=== PATIENT | male | born 1945 | race Caucasian/White ===

== ENCOUNTER 2016-10-04 09:12 | Emergency (ER) | payer OTHER ==
[2016-10-04 09:40] VITALS: RESP 16; TEMP 98.2
[2016-10-04 09:40] LABS: COLOR YELLOW; LEUKOCYTE ESTERASE,URINE NEGATIVE (NEGATIVE); NITRITE,URINE NEGATIVE (NEGATIVE)
[2016-10-04 09:58] LABS: % IMMATURE GRANULYOCYTES 0.4 % (0.0-1.1); ABSOLUTE IMMATURE GRANULOCYTES 0.03 10^3/uL (0.00-0.10); ADD DIFF? NO; ADD MORPH? NO; ADD SCAN? NO; ATYPICAL LYMPHOCYTE FLAG 0 (0-99); FRAGMENT RBC FLAG 0 (0-99); HEMATOCRIT 37.7 % (40.0-51.0); HEMOGLOBIN 13.3 g/dL (13.7-17.5); LEFT SHIFT FLG 0 (0-99); LIPEMIA HEMOLYSIS FLAG 90 (0-99); MEAN CELL HEMOGLOBIN 33.3 pg (27.9-34.1); MEAN CELL HEMOGLOBIN CONCENTR. 35.3 g/dL (32.4-36.7); MEAN CELL VOLUME 94.3 fL (81.5-99.8); MEAN PLATELET VOLUME 10.8 fL (8.7-11.7); PLATELET CLUMPS FLAG 0 (0-99); PLATELET COUNT 205 10^3/uL (150-400); RED CELL DISTRIBUTION WIDTH 12.3 % (11.5-15.2)
[2016-10-04 10:01] LABS: INR 1.58 (0.83-1.16); PROTIME(PATIENT) 18.9 SEC (12.0-15.0)
[2016-10-04 10:03] LABS: APTT 51.8 SEC (23.0-38.0)
[2016-10-04 10:09] LABS: BACTERIA TRACE /hpf (NONE SEEN); MUCUS 1+ /lpf (NONE-1+); RBC,URINE 50-182 /hpf (0-3)
[2016-10-04 10:14] LABS: ANION GAP 12 mEq/L (8-16); CALCIUM 9.1 mg/dL (8.5-10.4); CARBON DIOXIDE 21 mEq/l (22-31); CHLORIDE 103 mEq/L (97-110); CREATININE 1.5 mg/dL (0.7-1.3); GLOMERULAR FILTRATION RATE 46; GLUCOSE 120 mg/dL (70-100); SODIUM 136 mEq/L (134-144)
[2016-10-04] MEDS ORDERED: NS 1,000 ML IV ONE (10:42)
[2016-10-04] MEDS ORDERED: ONDANSETRON 4 MG/2 ML VIAL IVP ONE (10:53)
--- NOTE | 2016-10-04 12:10 | EDPHY ---
H & P Stated Complaint: Possible kidney stone Time Seen by Provider: 10/04/16 09:26 HPI/ROS: Chief complaint: Left flank pain, possible kidney stone History of present illness: This is a 71-year-old male with a history of kidney stones who presents to the emergency department with left flank pain. He reports the onset of symptoms over the last few days. He has had associated hematuria although this started before the pain. He denies precipitating factors. He denies alleviating factors. He did contact his urologist office who recommended he come to the emergency room for evaluation. Patient denies other associated signs or symptoms including no fevers, no dysuria, no frequency or hesitancy. Review of systems: A 10 point review of systems was obtained and other than described above was negative Source: Patient, snf records - Personal History Current Tetanus Diphtheria and Acellular Pertussis (TDAP): Yes - Medical/Surgical History Other PMH: kidney stones - Social History Smoking Status: Former smoker - Physical Exam Exam: General Appearance: Alert, nontoxic. Eyes: Pupils equal and round no pallor or injection. ENT, Mouth: Mucous membranes moist. Respiratory: There are no retractions, lungs are clear to auscultation. Cardiovascular: Regular rate and rhythm. Gastrointestinal: Abdomen is soft and nontender, no masses, bowel sounds normal. Genitourinary: No CVA tenderness. Neurological: Alert and oriented x4. Strength and sensation intact and symmetrical. Skin: Warm and dry, no rashes. Musculoskeletal: Neck is supple nontender. Extremities are symmetrical, full range of motion. Psychiatric: Patient is oriented X 3, there is no agitation. Constitutional: Initial Vital Signs Temperature (C) 36.8 C 10/04/16 09:20 Heart Rate 69 10/04/16 09:20 Respiratory Rate 16 10/04/16 09:20 Blood Pressure 117/68 10/04/16 09:20 O2 Sat (%) 98 10/04/16 09:20 O2 Delivery Mode Room Air Allergies/Adverse Reactions: No Known Allergies Allergy (Verified 10/04/16 09:24) Home Medications: Medication Instructions Recorded Atorvastatin Calcium [Lipitor 40 40 mg PO 10/04/16 mg (*)] Dabigatran Etexilate Mesyl 150 mg PO BID 10/04/16 [Pradaxa 150 MG (*)] Hydrocodone/APAP 5/325 [[place] 1 tab PO Q6H #10 tab 10/04/16 5/325 (*)] [place]-3 Fatty Acids [Fish Oil] 300 mg PO 10/04/16 Ondansetron Odt [Zofran Odt 4 mg 4 mg PO Q6 #6 tab 10/04/16 (*)] Ubidecarenone [Coq-10] 30 mg PO 10/04/16 Medical Decision Making - Diagnostics Imaging: CT scan of the abdomen pelvis shows a left-sided distal 4 mm ureteral stone with mild hydro. Also a benign pulmonary nodule. ED Course/Re-evaluation: Patient seen under the supervision of my secondary supervising physician Dr. Jim Iqbal. Patient presents to the emergency department for left flank pain. It does appear that he has a kidney stone. There is mild elevation of creatinine. He has been IV hydrated. His pain has been controlled. I have consulted with his urologist, Dr. Nhan Harris. He is comfortable with patient being discharged home and following up in clinic. He does not recommend antibiotics for urinalysis findings. Home care is discussed with the patient. Return precautions are given. Patient voiced understanding and agreement with plan. Differential Diagnosis: Included but not limited to kidney stone, urinary tract infection, obstructive uropathy - Data Points Laboratory Results: Laboratory Results 10/04/16 09:45 10/04/16 09:45 10/04/16 10/04/16 10/04/16 09:45 09:45 09:45 WBC 8.55 10^3/uL 10^3/uL (3.80-9.50) RBC 4.00 10^6/uL L 10^6/uL (4.40-6.38) Hgb 13.3 g/dL L g/dL (13.7-17.5) Hct 37.7 % L % (40.0-51.0) MCV 94.3 fL fL (81.5-99.8) MCH 33.3 pg pg (27.9-34.1) MCHC 35.3 g/dL g/dL (32.4-36.7) RDW 12.3 % % (11.5-15.2) Plt Count 205 10^3/uL 10^3/uL (150-400) MPV 10.8 fL fL (8.7-11.7) Neut % (Auto) 78.1 % H % (39.3-74.2) Lymph % (Auto) 12.3 % L % (15.0-45.0) [place] % (Auto) 8.7 % % (4.5-13.0) Eos % (Auto) 0.1 % L % (0.6-7.6) Baso % (Auto) 0.4 % % (0.3-1.7) Nucleat RBC Rel Count 0.0 % % (0.0-0.2) Absolute Neuts (auto) 6.69 10^3/uL H 10^3/uL (1.70-6.50) Absolute Lymphs (auto) 1.05 10^3/uL 10^3/uL (1.00-3.00) Absolute Monos (auto) 0.74 10^3/uL 10^3/uL (0.30-0.80) Absolute Eos (auto) 0.01 10^3/uL L 10^3/uL (0.03-0.40) Absolute Basos (auto) 0.03 10^3/uL 10^3/uL (0.02-0.10) Absolute Nucleated RBC 0.00 10^3/uL 10^3/uL (0-0.01) Immature Gran % 0.4 % % (0.0-1.1) Immature Gran # 0.03 10^3/uL 10^3/uL (0.00-0.10) PT 18.9 SEC H SEC (12.0-15.0) INR 1.58 H (0.83-1.16) APTT 51.8 SEC H SEC (23.0-38.0) Sodium 136 mEq/L mEq/L (134-144) Potassium 4.0 mEq/L mEq/L (3.5-5.2) Chloride 103 mEq/L mEq/L (97-110) Carbon Dioxide 21 mEq/l L mEq/l (22-31) Anion Gap 12 mEq/L mEq/L (8-16) BUN 23 mg/dL mg/dL (7-23) Creatinine 1.5 mg/dL H mg/dL (0.7-1.3) Estimated GFR 46 Glucose 120 mg/dL H mg/dL (70-100) Calcium 9.1 mg/dL mg/dL (8.5-10.4) Urine Color Urine Appearance Urine pH Ur Specific [place] Urine Protein Urine Ketones Urine Blood Urine Nitrate Urine Bilirubin Urine Urobilinogen Ur Leukocyte Esterase Urine RBC Urine WBC Ur Epithelial Cells Urine Bacteria Hyaline Casts Urine Mucus Ur Culture Indicated? Urine Glucose 10/04/16 09:25 WBC RBC Hgb Hct MCV MCH MCHC RDW Plt Count MPV Neut % (Auto) Lymph % (Auto) [place] % (Auto) Eos % (Auto) Baso % (Auto) Nucleat RBC Rel Count Absolute Neuts (auto) Absolute Lymphs (auto) Absolute Monos (auto) Absolute Eos (auto) Absolute Basos (auto) Absolute Nucleated RBC Immature Gran % Immature Gran # PT INR APTT Sodium Potassium Chloride Carbon Dioxide Anion Gap BUN Creatinine Estimated GFR Glucose Calcium Urine Color YELLOW Urine Appearance MODERATELY TURBID Urine pH 5.0 (5.0-7.5) Ur Specific [place] 1.028 (1.002-1.030) Urine Protein 2+ H (NEGATIVE) Urine Ketones TRACE H (NEGATIVE) Urine Blood 3+ H (NEGATIVE) Urine Nitrate NEGATIVE (NEGATIVE) Urine Bilirubin NEGATIVE (NEGATIVE) Urine Urobilinogen NEGATIVE EU EU (0.2-1.0) Ur Leukocyte Esterase NEGATIVE (NEGATIVE) Urine RBC 50-182 /hpf H /hpf (0-3) Urine WBC 10-15 /hpf H /hpf (0-3) Ur Epithelial Cells NONE SEEN /lpf /lpf (NONE-1+) Urine Bacteria TRACE /hpf H /hpf (NONE SEEN) Hyaline Casts 1-5 /lpf /lpf (0-1) Urine Mucus 1+ /lpf /lpf (NONE-1+) Ur Culture Indicated? INDICATED H (NI) Urine Glucose NEGATIVE (NEGATIVE) Medications Given: Discontinued Medications Sodium Chloride (Ns) 1,000 mls @ 0 mls/hr IV ONCE ONE PRN Reason: Wide Open Stop: 10/04/16 10:43 Last Admin: 10/04/16 10:10 Dose: 1,000 mls Morphine Sulfate (Morphine) 2 mg IVP EDNOW ONE Stop: 10/04/16 10:53 Last Admin: 10/04/16 10:55 Dose: 2 mg Ondansetron HCl (Zofran) 4 mg IVP EDNOW ONE Stop: 10/04/16 10:54 Last Admin: 10/04/16 10:55 Dose: 4 mg Departure - Departure Disposition: Home, Routine, Self-Care Clinical Impression: Kidney stone Condition: Good Instructions: Kidney Stones (ED) Additional Instructions: Follow-up with your urologist this week for recheck Please have your urologist or primary care doctor recheck your creatinine as it was elevated at 1.5 today If symptoms worsen or new symptoms develop return to the emergency department for recheck Referrals: David Cordoba MD [Primary Care Provider] - As per Instructions Nhan Harris MD [Medical Doctor] - As per Instructions Prescriptions: Hydrocodone/APAP 5/325 [[place] 5/325 (*)] 1 tab PO Q6H #10 tab Ondansetron Odt [Zofran Odt 4 mg (*)] 4 mg PO Q6 #6 tab
[2016-10-04 12:44] VITALS: BP 132/63; PULSE 65; O2SAT 96
== END 2016-10-04 12:44 | disposition home or self-care (01) ==
DX: N20.0 Calculus of kidney (principal); Z87.891 Personal history of nicotine dependence
CPT/HCPCS: 74176; 96361; 96374; 96375; 99285; J2405

== ENCOUNTER 2016-10-08 06:34 | Day surgery (SDC) | payer OTHER ==
[2016-10-08] MEDS ORDERED: ONDANSETRON 4 MG/2 ML VIAL IVP ONE (07:08)
--- NOTE | 2016-10-08 07:12 | EDPHY ---
H & P Time Seen by Provider: 10/08/16 06:58 HPI/ROS: CHIEF COMPLAINT: Left flank pain HISTORY OF PRESENT ILLNESS: 71-year-old male with a history of kidney stones presents left flank pain. On 10/04/2016, he was diagnosed with a left ureteral calculus, 4 x 3 mm, associated with moderate left hydronephrosis. He was discharged home on hydrocodone. Since then the pain has remained moderate to severe and this associated with generalized abdominal cramping. He saw Dr. Nair in the office 2 days ago and the plan was to observe for now, consider operative removal of the ureteral calculus if symptoms persist. No associated fever, dysuria or vomiting. REVIEW OF SYSTEMS: Constitutional: No fever, no chills Eyes: No visual changes ENT: No sore throat Respiratory: No cough, no shortness of breath Cardiac: No chest pain Gastrointestinal: No nausea, no vomiting Genitourinary: No hematuria, no dysuria Musculoskeletal: No leg pain or swelling Skin: No rash Neurological: No headache, no numbness, no weakness Psychiatric: No depression Past Medical/Surgical History: Kidney stones Social History: Smoking Status: Former smoker Physical Exam: General Appearance: Alert, pleasant, does not appear in pain Eyes: Pupils equal and round, no conjunctival pallor or injection ENT, Mouth: Mucous membranes moist Neck: Normal inspection Respiratory: Lungs are clear to auscultation Cardiovascular: Regular rate and rhythm Gastrointestinal: Abdomen is soft, left lower quadrant tenderness Back: No CVA tenderness Neurological: A&O, nonfocal, normal gait Skin: Warm and dry, no rash Extremities: Nontender, no pedal edema Psychiatric: Mood and affect normal Constitutional: Initial Vital Signs Temperature (C) 36.8 C 10/08/16 06:39 Heart Rate 66 10/08/16 06:39 Respiratory Rate 16 10/08/16 06:39 Blood Pressure 120/53 L 10/08/16 06:39 O2 Sat (%) 92 10/08/16 06:39 O2 Delivery Mode Room Air Allergies/Adverse Reactions: No Known Allergies Allergy (Verified 10/08/16 06:44) Home Medications: Medication Instructions Recorded Atorvastatin Calcium [Lipitor 40 40 mg PO HS 10/04/16 mg (*)] Dabigatran Etexilate Mesyl 150 mg PO BID 10/04/16 [Pradaxa 150 MG (*)] Docusate Sodium [Colace 100 MG (*)] 100 mg PO DAILY 10/08/16 Herbals/Supplements -Info Only 1 ea PO DAILY 10/08/16 Hydrocodone/APAP 5/325 [[place] 1 tab PO Q4-6PRN PRN 10/08/16 5/325 (*)] [place]-3 Fatty Acids [Fish Oil 1000 1,000 mg PO BID 10/08/16 mg (*)] Ondansetron Odt [Zofran Odt 4 mg 4 mg PO Q8H PRN 10/08/16 (*)] Propafenone HCl [Rythmol 150mg (*)] 150 mg PO TID 10/08/16 Terazosin HCl [Hytrin 2 MG (*)] 2 mg PO HS 10/08/16 celeCOXIB [Celebrex (*)] 200 mg PO BID PRN 10/08/16 Medical Decision Making ED Course/Re-evaluation: This patient presents with persistent severe left flank pain related to renal colic and a known ureteral calculus. IV normal saline 1 L, morphine and Zofran I IV given with pain relief. Consulted Dr. Harris, who will admit the patient. Differential Diagnosis: Differential diagnosis includes though it is not limited to appendicitis, cholecystitis, diverticulitis, pyelonephritis, bowel perforation, small bowel obstruction. - Data Points Laboratory Results: Laboratory Results 10/08/16 06:55 10/08/16 06:55 Medications Given: Discontinued Medications Sodium Chloride (Ns) 1,000 mls @ 0 mls/hr IV ONCE ONE PRN Reason: Wide Open Stop: 10/08/16 07:51 Last Admin: 10/08/16 07:50 Dose: 1,000 mls Morphine Sulfate (Morphine) 6 mg IVP Q1H PRN PRN Reason: Pain, Severe Unable to Take PO Stop: 10/08/16 09:09 Last Admin: 10/08/16 09:37 Dose: 4 mg Ondansetron HCl (Zofran) 4 mg IVP EDNOW ONE Stop: 10/08/16 07:09 Last Admin: 10/08/16 11:09 Dose: Not Given Departure - Departure Disposition: To OP Cath/Surgery Clinical Impression: Left ureteral calculus Condition: Good
[2016-10-08 07:15] LABS: % IMMATURE GRANULYOCYTES 0.3 % (0.0-1.1); ABSOLUTE IMMATURE GRANULOCYTES 0.02 10^3/uL (0.00-0.10); ADD DIFF? NO; ADD MORPH? NO; ADD SCAN? NO; ATYPICAL LYMPHOCYTE FLAG 10 (0-99); FRAGMENT RBC FLAG 0 (0-99); HEMATOCRIT 33.1 % (40.0-51.0); HEMOGLOBIN 11.5 g/dL (13.7-17.5); LEFT SHIFT FLG 0 (0-99); LIPEMIA HEMOLYSIS FLAG 90 (0-99); MEAN CELL HEMOGLOBIN 32.6 pg (27.9-34.1); MEAN CELL HEMOGLOBIN CONCENTR. 34.7 g/dL (32.4-36.7); MEAN CELL VOLUME 93.8 fL (81.5-99.8); MEAN PLATELET VOLUME 10.5 fL (8.7-11.7); PLATELET CLUMPS FLAG 0 (0-99); PLATELET COUNT 182 10^3/uL (150-400); RED BLOOD CELL COUNT 3.53 10^6/uL (4.40-6.38); RED CELL DISTRIBUTION WIDTH 12.5 % (11.5-15.2)
[2016-10-08 07:22] LABS: ANION GAP 8 mEq/L (8-16); CALCIUM 8.6 mg/dL (8.5-10.4); CARBON DIOXIDE 24 mEq/l (22-31); CHLORIDE 102 mEq/L (97-110); CREATININE 1.7 mg/dL (0.7-1.3); GLOMERULAR FILTRATION RATE 40; GLUCOSE 105 mg/dL (70-100); POTASSIUM 4.4 mEq/L (3.5-5.2); SODIUM 134 mEq/L (134-144)
[2016-10-08] MEDS ORDERED: NS 1,000 ML IV ONE (07:50)
[2016-10-08] MEDS ORDERED: ONDANSETRON 4 MG/2 ML VIAL IVP PRN (09:30)
[2016-10-08] MEDS ORDERED: HYDROmorphONE/DILAUDID 6 MG/30 ML PCA IV PRN (09:30)
[2016-10-08] MEDS ORDERED: D5W 1/2 NS 1,000 ML IV SCH (09:45)
[2016-10-08 10:26] LABS: COLOR PALE YELLOW; LEUKOCYTE ESTERASE,URINE NEGATIVE (NEGATIVE); NITRITE,URINE NEGATIVE (NEGATIVE)
[2016-10-08] MEDS ORDERED: IOPAMIDOL (ISOVUE-300) 200 ML BTL IV ONE (10:41)
[2016-10-08 10:42] VITALS: BP 109/59; PULSE 64; RESP 14; O2SAT 94
[2016-10-08 11:37] VITALS: TEMP 98.4
[2016-10-08] MEDS ORDERED: fentaNYL 100 MCG/2 ML INJ ONE (12:42)
[2016-10-08] MEDS ORDERED: PROPOFOL 200 MG/20 ML VIAL ONE ×2 (12:42)
[2016-10-08] MEDS ORDERED: ceFAZolin 2 GM/DEXTROSE 100 ML IV ONE (13:00)
[2016-10-08] MEDS ORDERED: LIDOCAINE 2% 5 ML SDV ONE (13:03)
[2016-10-08] MEDS ORDERED: epHEDrine SULFATE 10 MG/ML SYR ONE (13:03)
--- NOTE | 2016-10-08 14:07 | GOP ---
DATE OF OPERATION: 10/08/2016 SURGEON: Nhan Harris MD PREOPERATIVE DIAGNOSIS: Left ureteral calculus. POSTOPERATIVE DIAGNOSIS: Left ureteral calculus. PROCEDURE PERFORMED: Left ureteroscopy with holmium laser lithotripsy, basket extraction of stone f ragments, placement of indwelling ureteral stent. FINDINGS: INDICATIONS: The patient is a 71-year-old male who presented to the Emergency Department with a per sistently symptomatic left lower ureteral stone. After discussing options, he elected to come in fo r a removal. DESCRIPTION OF PROCEDURE: After informed consent and with general LMA anesthesia, the patient was p laced in the lithotomy position with his genitalia sterilely prepped and draped. Cystoscopy was car ried out and a Centric guidewire passed into the left renal pelvis. The semirigid scope was then pa ssed to the level of the stone, which was partially impacted. A 200 micron holmium laser fiber with 6.4 coffey of energy was used to fragment the stone. Fragments were removed with a Nitinol basket. The scope was advanced into the more proximal ureter, where no additional fragments were seen. The scope was then removed and a 6-Greek multi length ureteral stent positioned. A withdrawal string was left in place. The patient was awakened and transferred to the recovery room in stable condition. There were no in traoperative complications or blood loss. Specimens were stone fragments for analysis. /[id number]/MODL
[2016-10-08] MEDS ORDERED: NALOXONE HCL 0.4 MG/ML INJ IVP PRN (19:53)
[2016-10-13 18:05] LABS: SOURCE OF STONE LEFT URETERAL STONE
[2016-10-13 18:06] LABS: NIDUS NOT OBSERVED
== END 2016-10-09 | disposition home or self-care (01) ==
LOC: UNDOADMOB 07:50 → FSGY 10-09 05:46
PROVIDERS: ATTEND Urology
PROC: 0T778DZ Dilation of Left Ureter with Intraluminal Device, Via Natural or Artificial Opening Endoscopic (ICD-10-PCS; principal; 2016-10-08 12:30)
PROC: 0TF78ZZ Fragmentation in Left Ureter, Via Natural or Artificial Opening Endoscopic (ICD-10-PCS; principal; 2016-10-08 12:30)
DX: N20.1 Calculus of ureter (principal); Z87.891 Personal history of nicotine dependence
CPT/HCPCS: 52356; 74000; 76001; 96360; 99285; C1769; 82365-90; C2625; J0690; J2405; J2704; J3010; Q9967

== ENCOUNTER → 2016-11-11 | Outpatient (CLI) | payer OTHER | LOC: BMCIMAGING 11:26 | PROVIDERS: ATTEND Urology | DX: Z09 Encounter for follow-up examination after completed treatment for conditions other than malignant neoplasm (principal); Z98.890 Other specified postprocedural states ==

== ENCOUNTER → 2017-04-12 | Outpatient (CLI) | payer OTHER | LOC: BHFA 15:30 | PROVIDERS: ATTEND Internal Medicine Interventional Cardiology | DX: I48.91 Unspecified atrial fibrillation (principal) ==

== ENCOUNTER → 2017-04-26 | Outpatient (CLI) | payer OTHER | LOC: BHFA 14:00 | PROVIDERS: ATTEND Internal Medicine Cardiovascular Disease | DX: I25.10 Atherosclerotic heart disease of native coronary artery without angina pectoris (principal); I48.91 Unspecified atrial fibrillation | CPT/HCPCS: 78452; 93017; A9500 ==

== ENCOUNTER → 2018-08-18 | Outpatient (CLI) | payer OTHER | LOC: BHFA 16:15 | PROVIDERS: ATTEND Internal Medicine Cardiovascular Disease | DX: I25.10 Atherosclerotic heart disease of native coronary artery without angina pectoris (principal) ==

== ENCOUNTER → 2018-08-24 | Outpatient (CLI) | payer OTHER ==
[~2018-08-24] MED LIST: IOPAMIDOL (ISOVUE 370) 75 ML BTL IV ONE
== END ==
LOC: FIMAGING 14:47
PROVIDERS: ATTEND Internal Medicine Cardiovascular Disease
DX: I77.810 Thoracic aortic ectasia (principal)
CPT/HCPCS: 71275; Q9967; 82565-PO

== ENCOUNTER → 2018-11-13 | Outpatient (CLI) | payer OTHER | LOC: BHFA 16:00 | PROVIDERS: ATTEND Internal Medicine Cardiovascular Disease | DX: R00.2 Palpitations (principal) ==